=== PATIENT | female | born 1985 ===

== ENCOUNTER 2017-09-14 19:23 | Emergency (ER) | payer SELFPAY ==
[2017-09-14 19:45] VITALS: RESP 18
[2017-09-14] MEDS ORDERED: Sodium Chloride 0.9% 1,000 ML IV ONE (20:06)
[2017-09-14] MEDS ORDERED: Aluminum Hydroxide/Magnesium Hydroxide Susp (30 mL) PO STA (20:06)
--- NOTE | 2017-09-14 20:20 | C.PDOC ---
History Of Present Illness 32 y/o female, at approximately 8 weeks gestation, presents to the ER for 2 weeks of epigastric and suprapubic pain. 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 Otherwise she denies any fever, chills, nausea, vomiting, or other complaints at this time. Time Seen by Provider: 09/14/17 20:00 Chief Complaint (Nursing): Abdominal Pain History Per: Patient History/Exam Limitations: no limitations Onset/Duration Of Symptoms: Days (x 2 weeks) Current Symptoms Are (Timing): Still Present Location Of Pain/Discomfort: Epigastric, Suprapubic Past Medical History Reviewed: Historical Data, Nursing Documentation, Vital Signs Vital Signs: Last Vital Signs Temp 98.2 F 09/14/17 23:48 Pulse 79 09/14/17 23:48 Resp 18 09/14/17 23:48 BP 119/79 09/14/17 23:48 Pulse Ox 100 09/14/17 23:48 - Medical History PMH: No Chronic Diseases Surgical History: Family History: States: No Known Family Hx - Social History Hx Alcohol Use: No Hx Substance Use: No - Immunization History Hx Tetanus Toxoid Vaccination: No Hx Influenza Vaccination: No Hx Pneumococcal Vaccination: No Review Of Systems Except As Marked, All Systems Reviewed And Found Negative. Constitutional: Negative for: Fever, Chills Gastrointestinal: Positive for: Abdominal Pain. Negative for: Nausea, Vomiting Physical Exam - Physical Exam Appears: Non-toxic, No Acute Distress, Other (Smiling, well-appearing) Skin: Normal Color, Warm, Dry Head: Atraumatic, Normacephalic Eye(s): bilateral: Normal Inspection, PERRL, EOMI Nose: Normal Oral Mucosa: Moist Neck: Normal ROM, Supple Chest: Symmetrical Cardiovascular: Rhythm Regular, No Murmur Respiratory: Normal Breath Sounds, No Accessory Muscle Use Gastrointestinal/Abdominal: Soft, Tenderness (Minimal epigastric tenderness), No Guarding, No Rebound Extremity: Bilateral: Atraumatic, Normal Color And Temperature, Normal ROM Neurological/Psych: Oriented x3, Normal Speech ED Course And Treatment - Laboratory Results Result Diagrams: 09/14/17 20:32 09/14/17 20:32 O2 Sat by Pulse Oximetry: 99 (RA) Pulse Ox Interpretation: Normal Medical Decision Making Medical Decision Making: ro ectopic gastritis pancreatiti, gallbladder pathology uti Time: 20:04 Initial Plan: * Blood type and screen * CMP * Lipase * Beta-HCG, quantitative * CBC * PTT * Prothrombin time * Urinalysis * HCG, qualitative urine * Maalox 30 ml PO * IV fluids * US Transvaginal * US Gall bladder pt reassesed all symptoms resolved asking for dc refuses to wait for ua. noted wbc count. reports recent improved uri Disposition - Disposition Referrals: [facility] [Outside] [facility] [Outside] [email or web address] [Outside] [facility] [Outside] Miquel Rodgers MD [Staff Provider] - Non [facility] Provider, [Primary Care Provider] - Disposition: HOME/ ROUTINE Disposition Time: 23:00 Condition: STABLE Additional Instructions: follow up with obgyn and specialist. reutrn to er with worsening. Instructions: Threatened Miscarriage, Acute Abdomen (Belly Pain) Forms: [facility] (Nauruan), [employer] Excuse - Clinical Impression Clinical Impression: Abdominal pain, Threatened miscarriage - Scribe Statement The provider has reviewed the documentation as recorded by the Scribe (Petra Helm) Provider Attestation: All medical record entries made by the Scribe were at my direction and personally dictated by me. I have reviewed the chart and agree that the record accurately reflects my personal performance of the history, physical exam, medical decision making, and the department course for this patient. I have also personally directed, reviewed, and agree with the discharge instructions and disposition.
[2017-09-14] MEDS ORDERED: Aluminum Hydroxide/Magnesium Hydroxide Susp (30 mL) ONE (20:22)
[2017-09-14] MEDS ORDERED: Sodium Chloride 0.9% 1,000 ML ONE (20:22)
[2017-09-14 20:36] LABS: BASO # 0.1 K/uL (0.0-0.2); BASO % 0.4 % (0.0-2.0); EOS # 0.1 K/uL (0.0-0.7); EOS % 0.7 % (0.0-4.0); LYMPH # 2.9 K/uL (1.0-4.3); LYMPH % 19.9 % (20.0-40.0); MEAN CELL VOLUME 83.2 fL (81.0-99.0); MEAN CORPUSCULAR HEMOGLOBIN 27.8 pg (27.0-31.0); MEAN CORPUSCULAR HGB CONC 33.4 g/dL (33.0-37.0); MEAN PLATELET VOLUME 9.6 fL (7.2-11.7); MONO # 0.9 K/uL (0.0-0.8); MONO % 6.4 % (0.0-10.0); NEUT # 10.5 K/uL (1.8-7.0); NEUT % 72.6 % (50.0-75.0); NRBC % 0.1 % (0.0-2.0); RBC 4.31 Mil/uL (3.80-5.20); RED CELL DISTRIBUTION WIDTH 13.5 % (11.5-14.5); WHITE BLOOD COUNT 14.5 K/uL (4.8-10.8)
[2017-09-14 20:45] LABS: INR 1.1
[2017-09-14 20:52] LABS: ALT/SGPT 34 U/L (9-52); AST/SGOT 30 U/L (14-36); BLOOD UREA NITROGEN 10 mg/dL (7-17); CALCIUM 9.2 mg/dl (8.6-10.4); GFR AFRICAN-AMERICAN > 60; GFR NON-AFRICAN AMERICAN > 60; LIPASE 69 U/L (23-300)
--- NOTE | 2017-09-14 23:08 | US ---
EXAM: US Abdomen Limited, Right Upper Quadrant CLINICAL HISTORY: 32 years old, female; Pain; Abdominal pain; Epigastric; ; Additional info: Epigastric pain TECHNIQUE: Real-time ultrasound of the right upper quadrant with image documentation. COMPARISON: No relevant prior studies available. FINDINGS: Liver: Measured at 16 cm. Evidence of subcentimeter cyst in the right hepatic lobe. Gallbladder: No acute abnormality as visualized. No gallstones. Common bile duct: No dilation. Pancreas: No acute abnormality as visualized. Right kidney: Measured at 11.2 cm. No hydronephrosis. IMPRESSION: No acute sonographic abnormality visualized. Details/findings as above.
--- NOTE | 2017-09-14 23:17 | US ---
EXAM: US First Trimester, Transabdominal CLINICAL HISTORY: 32 years old, female; Pain; complicated by abdominal or pelvic pain; Lower; First trimester; Gestational age or lmp: 1-6-18; ; Additional info: Abd pain TECHNIQUE: Real-time transabdominal obstetrical ultrasound of the maternal pelvis and a first trimester with image documentation. COMPARISON: No relevant prior studies available. FINDINGS: Gestation: Intrauterine gestational sac with yolk sac and pole. Estimated gestational age based on crown-rump length is 9 weeks 2 days. Heart rate measured at 171 BPM. Subchorionic hemorrhage measured approximately 3 cm in maximal dimension noted superior to the gestational sac. Uterus/cervix: No acute abnormality as visualized. No myometrial mass. Ovaries: No acute abnormality as visualized. Bilateral Doppler flow. Free fluid: No free fluid. IMPRESSION: Intrauterine gestational sac with yolk sac and pole. Estimated gestational age based on crown-rump length is 9 weeks 2 days. Heart rate measured at 171 BPM. Subchorionic hemorrhage measured approximately 3 cm in maximal dimension noted superior to the gestational sac. Followup imaging recommended.
[2017-09-14 23:48] VITALS: BP 119/79; PULSE 79; TEMP 98.2
[2017-09-14 23:50] LABS: HCG,QUALITATIVE URINE POSITIVE (NEGATIVE)
[2017-09-14 23:52] LABS: SQUAMOUS EPITHIAL 10 /hpf (0-5); URINE BILIRUBIN NEGATIVE (NEGATIVE); URINE BLOOD 1+ (NEGATIVE); URINE CLARITY Hazy (Clear); URINE COLOR Yellow (YELLOW); URINE GLUCOSE (UA) NORMAL (Normal); URINE LEUKOCYTE ESTERASE TRACE Leu/uL (Negative); URINE PROTEIN NEGATIVE (NEGATIVE); URINE UROBILINOGEN NORMAL mg/dL (0.2-1.0)
[2017-09-15 01:08] VITALS: O2SAT 99
== END 2017-09-14 23:48 | disposition home or self-care (01) ==
LOC: SUPCPDRO 19:23 → C.ER 19:23
DX: O20.0 Threatened abortion (principal); Z3A.09 9 weeks gestation of pregnancy; R10.13 Epigastric pain
CPT/HCPCS: 76705; 76801; 80053; 81001; 83690; 84702; 84703; 85025; 85610; 85730; 86850; 86900; 96360; 99284; J7040